=== PATIENT | female | born 1960 | race Caucasian/White ===

== ENCOUNTER → 2016-08-31 | Outpatient (CLI) | payer BC ==
[~2016-08-31] VITALS: Ht 160 cm; Wt 113.4 kg
[~2016-08-31] MED LIST: IBUP200T77 PO; LEVO75TA5 PO
[2016-08-31 09:12] VITALS: BP 151/71
--- NOTE | 2016-08-31 12:02 | RAD ---
Indication left thyroid nodule. Note is made of the thyroid ultrasound examination 07/17/2016 demonstrating a nodule in the left lobe of the thyroid. Note is made of the nuclear medicine thyroid uptake and scan 08/23/2016. Preliminary ultrasound images of the thyroid were obtained. The known nodule in the left lobe of the thyroid measuring approximately 11 mm in greatest dimension was reproduced. Delivery Stock Clerk ultrasound images were saved. Image guided biopsy was discussed with the patient. The risks of infection and bleeding were outlined. The possibility of a nondiagnostic biopsy was also discussed. The patient understood the risks and limitations associated with the procedure and wished to proceed. The left neck was prepped and draped in the routine fashion. Local anesthesia was accomplished with 1% lidocaine. Under ultrasound guidance 3 FNA samples with 25-gauge needles were obtained. Subsequently a Rotex sample was obtained and finally 2 core samples with a 19-gauge Temno were obtained. Pathology was present during the examination and all retrieved tissue was passed to pathology The patient tolerated the procedure unremarkably. The patient was watched in the department for approximately 20 minutes following the procedure and discharged with appropriate instructions. IMPRESSION: Successful ultrasound-guided sampling of dominant nodule in the left lobe of the thyroid
--- NOTE | 2016-09-01 15:33 | PATHOLOGY ---
CYTOPATHOLOGY REPORT CLINICAL HISTORY: Left thyroid nodule. Family history of thyroid cancer. See also [id number] SPECIMEN(S) RECEIVED: A.Fine needle aspiration, left thyroid FINAL DIAGNOSIS: A. Left thyroid fine needle aspiration, smears and ThinPrep: - Sidell category: Benign -Few clusters of thyroid follicular cells and scant colloid identified. COMMENT: There are only a few clustered of thyroid follicular cells present. I am not certain that the sample is adequately collections representative of the lesion. Correlate clinically. (JPM:all; d/t: 09/01/2016) PATHOLOGIST: Archie Crenshaw M.D. REPORT ELECTRONICALLY SIGNED BY: Archie Crenshaw M.D. DATE/TIME: 09/01/2016 15:30 GROSS PATHOLOGY: A. Fine needle aspiration, left thyroid: The specimen is labeled "Kylee Snell" and consists of two air dried slides, two fixed slides and two Diff-Quik slides. Thirty mL of light pink fluid in CytoLyt from the needle rinse is also submitted and one ThinPrep slide was prepared from this material. Affirma vial also received. (kg 08/31/16) DISHWASHER(S): GODFREY Nieto(ASCP) INITIAL CPT CODE(S): A; 77336 Professional services performed [place] [address] Technical services performed by [facility] at [address] [place] [address], [address], [place] [address]. [facility]ar PATIENT: KYLEE SNELL /AGE: 905/08/1960 (Age: 56) SEX: F PATIENT #: [id number] ALT CASE #: SPECIMEN COLLECTION DATE: 08/31/2016 SPECIMEN RECEIVED DATE: 08/31/[address] [facility] [address] [place] [address], [address] [place] [address] PHONE: [phone] DIRECTOR: Manuel Yin M.D. * * * END OF REPORT * * *
--- NOTE | 2016-09-01 15:34 | PATHOLOGY ---
PATHOLOGY REPORT * * * * * * * * FINAL DIAGNOSIS: Left thyroid nodule needle biopsies: - Segments of skeletal muscle tissue and few minute segments of benign thyroid tissue identified. COMMENT: Sections of the left thyroid nodule needle biopsy primarily reveal segments of skeletal muscle tissue. There are a few minute segments of benign thyroid tissue. The latter consists of thyroid follicles which are lined by cuboidal cells having round, regular hyperchromatic nuclei. A few of the follicles contain colloid. There are no cytological or architectural features of malignancy. (JPM:all; d/t: 09/01/2016) REPORT ELECTRONICALLY SIGNED BY: Archie Crenshaw M.D. DATE/TIME: 09/01/2016 15:32 * * * * * * * * GROSS PATHOLOGY: The specimen is received in formalin labeled "Sarah Manzanares," and additionally labeled on the requisition as, "left thyroid nodule". Received are multiple needle cores of pale soares friable soft tissue measuring 0.4 x 0.3 x 0.1 cm in aggregate dimensions. The specimen is filtered and entirely submitted in cassette A1. (CAA; 08/31/2016) INITIAL CPT CODE(S): A; 64786 Professional services [place] [address] Technical services performed by [facility] at [address] [place] [address], [facility] [address], [place] [address]. SPECIMEN(S) RECEIVED: A.Thyroid biopsy-left CLINICAL HISTORY: Dominant nodule left thyroid ~ 1cm, solid, family history of thyroid cancer PATIENT: SARAH MANZANARES Segundo /AGE: 905/08/1960 (Age: 56) PATIENT #: [id number] ALT CASE #: [id number] SPECIMEN COLLECTION DATE: 08/31/2016 SPECIMEN RECEIVED DATE: 08/31/2016 [facility] - [address] [place] [address] - PHONE: [phone] * * * END OF REPORT * * *
== END | disposition home or self-care (01) ==
LOC: US 08:23
PROVIDERS: ATTEND Nurse Practitioner Family
DX: E04.1 Nontoxic single thyroid nodule (principal); E03.9 Hypothyroidism, unspecified; R22.1 Localized swelling, mass and lump, neck; Z80.8 Family history of malignant neoplasm of other organs or systems
CPT/HCPCS: 60300; 76942